=== PATIENT | female | born 1985 | race Caucasian/White ===

== ENCOUNTER 2017-01-09 05:42 | Day surgery (SDC) | payer OTHER ==
[2017-01-09] VITALS (9 sets, daily range): BP systolic 107–119; BP diastolic 54–68; PULSE 72–83; RESP 17–21; Ht 165.1 cm; Wt 74.0 kg
[~2017-01-09] VITALS: Ht 165.1 cm; Wt 74.0 kg
[2017-01-09] MEDS ORDERED: ASPI81TA3 PO (06:53)
[2017-01-09] MEDS ORDERED: LIDOCAINE 100 MG SYRINGE ONE (07:07)
[2017-01-09] MEDS ORDERED: PROPOFOL 0 ML ONE (07:07)
[2017-01-09] MEDS ORDERED: FENTAnyl 50 MCG/ML VIAL ONE (07:08)
[2017-01-09] MEDS ORDERED: ONDANSETRON 4 MG INJ ONE (07:09)
[2017-01-09] MEDS ORDERED: FAMOTIDINE 20 MG INJ ONE (07:10)
[2017-01-09] MEDS ORDERED: BUPIVACAINE 0.5% (SDV) 30 ML INJ ONE (07:17)
[2017-01-09] MEDS ORDERED: POLYMYXIN/BACITRACIN 1L IRRIG ONE (07:17)
[2017-01-09] MEDS ORDERED: LIDOCAINE 2% (MDV) 20 ML INJ ONE (07:17)
[2017-01-09] MEDS ORDERED: CEFAZOLIN 1 GM INJ ONE (07:22)
--- NOTE | 2017-01-09 07:57 | HPN ---
Date/Time of Note Date/Time of Note DATE: 01/09/17 TIME: 07:56 Interval H&P Admission Note Pt. seen H&P reviewed: No system changes CAMI COREY DPM Jan 09, 2017 07:57
[2017-01-09] MEDS ORDERED: BUPIVACAINE 0.5% (MPF) 30 ML INJ INJ ONE (08:15)
[2017-01-09] MEDS ORDERED: LIDOCAINE 2% (MDV) 20 ML INJ INJ ONE (08:15)
[2017-01-09] MEDS ORDERED: ONDANSETRON 4 MG INJ IV PRN (09:00)
--- NOTE | 2017-01-09 09:35 | OPPN ---
Date/Time of Note Date/Time of Note DATE: 01/09/17 TIME: 09:32 Operative Report Preoperative Diagnosis Multiple pigmented skin lesions right foot Pigmented skin lesion left foot History of melanoma Postoperative Diagnosis Multiple pigmented skin lesions right foot Pigmented skin lesion left foot History of melanoma Operation/Procedure Performed Surgical excision of pigmented skin lesion right fifth toe Surgical excision of pigmented skin lesion right hallux Surgical excision of pigmented skin lesion left foot arch Provider: CAMI COREY DPM Anesthesia: MAC Estimated blood loss: minimal Specimens Skin lesion right fifth toe Skin lesion right hallux Skin lesion left foot Complications: None CAMI COREY DPM Jan 09, 2017 09:34
== END 2017-01-09 11:10 | disposition home or self-care (01) ==
LOC: SDS 05:42
PROVIDERS: ATTEND Podiatrist Foot & Ankle Surgery
DX: L81.8 Other specified disorders of pigmentation (principal); Z33.1 Pregnant state, incidental; Z85.820 Personal history of malignant melanoma of skin
CPT/HCPCS: 11100; 11101; 88304; J0690; J2405; J3010; L3260; Z7512; Z7610; J2001